=== PATIENT | male | born 1990 | race Caucasian/White ===

== ENCOUNTER 2020-06-06 16:20 | Inpatient (IN) | payer OTHER ==
--- OUTSIDE RECORDS SUMMARY | 2020-06-06 16:24 | XMS ---
:1990 Author Organization [facility] Support Name Relationship Address Phone UE Unavailable Unavailable Unavailable JARED CABEZAS MOTHER [address] [place] [address] Re-disclosure Warning The records that you are about to access may contain information from federally- assisted alcohol or drug abuse programs. If such information is present, then the following federally mandated warning applies: This information has been disclosed to you from records protected by federal confidentiality rules (42 CFR part 2). The federal rules prohibit you from making any further disclosure of this information unless further disclosure is expressly permitted by the written consent of the person to whom it pertains or as otherwise permitted by 42 CFR part 2. A general authorization for the release of medical or other information is NOT sufficient for this purpose. The Federal rules restrict any use of the information to criminally investigate or prosecute any alcohol or drug abuse patient.The records that you are about to access may contain highly sensitive health information, the redisclosure of which is protected by Article 27-F of the [facility] Public Health law. If you continue you may haveaccess to information: Regarding HIV / AIDS; Provided by facilities licensed or operated by the [facility] Office of Mental Health; or Provided by the [facility] Office for People With Developmental Disabilities. If such information is present, then the following [facility] mandated warning applies: This information has been disclosed to you from confidential records which are protected by state law. State law prohibits you from making any further disclosure of this information without the specific written consent of the person to whom it pertains, or as otherwise permitted by law. Any unauthorized further disclosure in violation of state law may result in a fine or fci sentence or both. A general authorization for the release of medical or other information is NOT sufficient authorization for further disclosure. Insurance Providers Payer name Policy type Policy ID Covered Covered green party's Policy P suleiman / Coverage green party ID relationship to Benítez Inf ormation type benítez BEACON [id number] ABDI
[2020-06-06 18:01] VITALS: BMI 27.4
--- NOTE | 2020-06-06 20:12 | BHS.RME ---
Substance Use & Tx History - Substance Use History Alcohol Substance amount: 1.5 liters of vodka Frequency of use: Daily Substance route: Oral - Last Treatment Where was last treatment: Detox ([facility] months ago.) Physical/Psych/Mental Status - Behavior General Behavior: Increased activity (restlessness, agitation) - Cooperativeness Cooperativeness: Cooperative - Thinking Thought Processes: Tight, Logical Thought content: Future oriented - Physical Health Problems Is patient presently having any pain?: Yes (heartburn) Does patient presently have any injuries (include location): No Does patient currently have a fever: No Is patient : No CIWA Nausea/Vomitin-No Nausea/No Vomiting Muscle Tremors: 4-Moderate,w/Arms Extend Anxiety: 3 Agitation: 2 Paroxysmal Sweats: 2 Orientation: 0-Oriented Tacttile Disturbances: 0-None Auditory Disturbances: 2-Mild Harshness/Frighten Visual Disturbances: 2-Mild Sensitivity Headache: 3-Moderate CIWA-Ar Total Score: 18 Treatment Recommendation - Level of Care Level of Care: Acute Medical (admit to detox for alcohol dependence.)
[2020-06-06] MEDS ORDERED: ONDANSETRON *ODT* 4 MG TABLET SL PRN (20:15)
[2020-06-06] MEDS ORDERED: ACETAMINOPHEN 325 MG TABLET (FP) PO PRN ×2 (20:15)
[2020-06-06] MEDS ORDERED: MAGNESIUM CITRATE 300 ML BOTTLE PO PRN (20:15)
[2020-06-06] MEDS ORDERED: METHOCARBAMOL 500 MG TABLET PO PRN (20:15)
[2020-06-06] MEDS ORDERED: IBUPROFEN 400 MG TABLET (FP) PO PRN (20:15)
[2020-06-06] MEDS ORDERED: MAG HYDROX/AL HYDROX/SIMETH 30 ML UNIT-DOSE CUP PO PRN (20:15)
[2020-06-06] MEDS ORDERED: hydrOXYzine PAMOATE 25 MG CAPSULE (FP) PO PRN (20:15)
[2020-06-06] MEDS ORDERED: MAGNESIUM HYDROX 2400MG/30ML ORAL SUSPENSION 30 ML CUP PO PRN (20:15)
[2020-06-06] MEDS ORDERED: BISMUTH SUBSALICYLATE 524 MG/30 ML UD PO PRN (20:15)
[2020-06-06] MEDS ORDERED: MENTHOL/PHENOL 1 EACH UD MM PRN (20:15)
[2020-06-06] MEDS ORDERED: chlordiazePOXIDE HCL 25 MG CAPSULE PO PRN (20:15)
--- NOTE | 2020-06-06 20:26 | HP ---
CIWA Score Nausea/Vomitin-No Nausea/No Vomiting Muscle Tremors: 4-Moderate,w/Arms Extend Anxiety: 3 Agitation: 2 Paroxysmal Sweats: No Perspiration Orientation: 1-Uncertain about Date Tacttile Disturbances: 0-None Auditory Disturbances: 2-Mild Harshness/Frighten Visual Disturbances: 2-Mild Sensitivity Headache: 3-Moderate CIWA-Ar Total Score: 17 - Admission Criteria OASAS Guidelines: Admission for Medically Managed Detox: Requires at least one of the followin. CIWA greater than 12 2. Seizures within the past 24 hours 3. Delirium tremens within the past 24 hours 4. Hallucinations within the past 24 hours 5. Acute intervention needed for co occurring medical disorder 6. Acute intervention needed for co occurring psychiatric disorder 7. Severe withdrawal that cannot be handled at a lower level of care (continued vomiting, continued diarrhea, abnormal vital signs) requiring intravenous medication and/or fluids 8. Patient presents the following: CIWA greater than 12 Admission Criteria Met: Admission criteria met Admitting History and Physical - Admission Chief Complaint: I need to stop drinking History of Present Illness: Patient is a 29 y/o male, first time in [facility] seeking detox form alcohol.Started drinking alcohol 2 years ago, currently drinking 1.5 liters of Vodka daily, last drank yesterday. Denies seizure but admits to blackout and eyeopener. Denies any other substance or nicotine use. History Source: Patient Limitations to Obtaining History: No Limitations - Past Surgical History Past Surgical History: Yes: None - Smoking History Smoking history: Current every day smoker - Alcohol/Substance Use Hx Alcohol Use: Yes - Social History Usual Living Arrangement: Yes: With Parent Do you think of yourself as: Straight/Heterosexual ADL: Independent History of Recent Travel: No Admission ROS [facility] Allergies/Adverse Reactions: Allergies Allergy/AdvReac Type Severity Reaction Status Date / Time No Known Drug Allergies Allergy Verified 06/06/20 20:15 History of Present Illness: Patient is a 29 y/o male, first time in [facility] seeking detox form alcohol.Started drinking alcohol 2 years ago, currently drinking 1.5 liters of Vodka daily, last drank yesterday. Denies seizure but admits to blackout and eyeopener. Denies any other substance or nicotine use. Exam Limitations: No Limitations - Ebola screening Have you traveled outside of the country in the last 21 days: No Have you had contact with anyone from an Ebola affected area: No Have you been sick,other than usual withdrawal symptoms: No Do you have a fever: No - Review of Systems Constitutional: Loss of Appetite, Night Sweats EENT: reports: No Symptoms Reported Respiratory: reports: No Symptoms reported Cardiac: reports: No Symptoms Reported GI: reports: Other (heartburn) : reports: No Symptoms Reported Musculoskeletal: reports: No Symptoms Reported Integumentary: reports: No Symptoms Reported Neuro: reports: No Symptoms reported Endocrine: reports: No Symptoms Reported Hematology: reports: No Symptoms Reported Psychiatric: reports: No Sypmtoms Reported, Judgement Intact, Mood/Affect Appropiate, Anxious Other Systems: Reviewed and Negative Patient History - Patient Medical History Hx Anemia: No Hx Asthma: No Hx Chronic Obstructive Pulmonary Disease (COPD): No Hx Cancer: No Hx Cardiac Disorders: No Hx Congestive Heart Failure: No Hx Hypertension: No Hx Hypercholesterolemia: No Hx Pacemaker: No HX Cerebrovascular Accident: No Hx Seizures: No Hx Dementia: No Hx Diabetes: No Hx Gastrointestinal Disorders: Yes (heartburn used to take pepcid) Hx Liver Disease: No Hx Genitourinary Disorders: No Hx Sexually Transmitted Disorders: No (denies) - Patient Surgical History Past Surgical History: No Hx Neurologic Surgery: No Hx Cataract Extraction: No Hx Cardiac Surgery: No Hx Lung Surgery: No Hx Breast Surgery: No Hx Breast Biopsy: No Hx Abdominal Surgery: No Hx Appendectomy: No Hx Cholecystectomy: No Hx Genitourinary Surgery: No Hx Section: No Hx Orthopedic Surgery: No Hx Hysterectomy: No Anesthesia Reaction: No - PPD History Previous Implant?: Yes Documented Results: Negative w/o proof Implanted On Prior [facility] Admission?: No PPD to be Administered?: Yes - Reproductive History Patient is a Female of Child Bearing Age (11 -55 yrs old): No Patient : No (male) - Smoking Cessation Smoking history: Never smoked Have you smoked in the past 12 months: No - Substance & Tx. History Hx Alcohol Use: Yes Hx Substance Use: No Substance Use Type: Alcohol Hx Substance Use Treatment: Yes (was in [facility] last week for detox) - Substances abused Alcohol Other (specify): vodka Substance route: Oral Frequency: Daily Amount used: 1.5 liters Age of first use: 27 Date of last use: 06/06/20 Admission Physical Exam [facility] - Vital Signs Vital Signs: Vital Signs - 24 hr 06/06/20 18:00 Temperature 98.1 F Pulse Rate 93 H Respiratory 18 Rate Blood Pressure 126/77 - Physical General Appearance: Yes: Nourished, Appropriately Dressed, Tremorous, Anxious (positive alcohol on breath) HEENTM: Yes: EOMI, Hearing grossly Normal, JOSE, Scleral Ictenus R Respiratory: Yes: Within Normal Limits, Lungs Clear, Normal Breath Sounds, No Respiratory Distress, No Accessory Muscle Use Neck: Yes: Within Normal Limits, No masses,lesions,Nodules Breast: Yes: Within Normal Limits, No masses Cardiology: Yes: Regular Rhythm, Regular Rate, S1, S2 Abdominal: Yes: Flat, Soft, Increased Bowel Sounds Genitourinary: Yes: Within Normal Limits Back: Yes: Within Normal Limits, Normal Inspection Musculoskeletal: Yes: Within Normal Limits, full range of Motion, Gait Steady Extremities: Yes: Within Normal Limits Neurological: Yes: Within Normal Limits, Alert, Motor Strength 5/5 Integumentary: Yes: Within Normal Limits, Normal Color, Dry Lymphatic: Yes: Within Normal Limits - Diagnostic (1) Alcohol dependence with withdrawal, uncomplicated Current Visit: Yes Status: Acute (2) Acid reflux Current Visit: Yes Status: Chronic Cleared for Admission [facility] - Detox or Rehab [facility] Level of Care: Medically Managed Detox Regimen/Protocol: Librium Claeared for Rehab Admission: No Screened but not Admitted - Documentation of Visit Screened but not Admitted: No Breathalyzer - Breathalyzer Breathalyzer: 0.179 Urine Drug Screen - Test Device Lot number: [id number] Expiration date: 12/01/21 - Control Is test valid?: Yes - Results Drug screen NEGATIVE: No Urine drug screen results: BZO-Benzodiazepines Inpatient Rehab Admission - Rehab Decision to Admit Inpatient rehab admission?: No
--- OUTSIDE RECORDS SUMMARY | 2020-06-06 21:11 | XMS ---
:1990 Author [facility] Support Name Relationship Address Phone UE Unavailable Unavailable Unavailable JARED CABEZAS MOTHER [address] [place] [address] Re-disclosure Warning The records that you are [...] is protected by Article 27-F of the [facility] Public Health law. If you continue you may haveaccess to information: Regarding HIV / AIDS; Provided by facilities licensed or operated by the [facility] Office of Mental Health; or Provided by the [facility] Office for People With Developmental Disabilities. If such information is present, then the following [facility] mandated warning applies: This information has [...] law may result in a fine or halfway sentence or both. A general authorization for the release of medical or other information is NOT sufficient authorization for further disclosure. Insurance Providers Payer name Policy type Policy ID Covered Covered green party's Policy P suleiman / Coverage green party ID relationship to Benítez Inf ormation type benítez BEACON [id number] ABDI
[2020-06-06] MEDS: THIAMINE HCL 100 MG TABLET (FP) PO SCH (21:49)
[2020-06-06] MEDS: MELATONIN 5 MG TABLETS PO SCH (21:51)
[2020-06-06] MEDS: chlordiazePOXIDE HCL 25 MG CAPSULE PO SCH (22:00)
[2020-06-07] MEDS: chlordiazePOXIDE HCL 25 MG CAPSULE PO SCH ×4 (05:34→22:06)
--- NOTE | 2020-06-07 09:49 | PN ---
S CIWA - CIWA Score Nausea/Vomitin-Mild Nausea/No Vomiting Muscle Tremors: 3 Anxiety: 3 Agitation: 4-Moderately Restless Paroxysmal Sweats: 3 Orientation: 0-Oriented Tacttile Disturbances: 0-None Auditory Disturbances: 0-None Visual Disturbances: 0-None Headache: 0-None Present CIWA-Ar Total Score: 14 BHS Progress Note (SOAP) Subjective: sweats shakes interrupted sleep agitation thirsty nausea Objective: 06/07/20 09:48 Vital Signs Temperature 98.7 F 06/07/20 06:15 Pulse Rate 75 06/07/20 06:15 Respiratory Rate 20 06/07/20 06:15 Blood Pressure 134/67 06/07/20 06:15 O2 Sat by Pulse Oximetry (%) 99 06/07/20 06:15 labs pending aaox3 ambulating no acute distress Assessment: 06/07/20 09:49 withdrawals sx Plan: continue detox increase fluids
--- NOTE | 2020-06-07 10:09 | EKG ---
Test Reason : Blood Pressure : / mmHG Vent. Rate : 077 BPM Atrial Rate : 077 BPM P-R Int : 128 ms QRS Dur : 078 ms QT Int : 408 ms P-R-T Axes : 055 055 047 degrees QTc Int : 461 ms NORMAL SINUS RHYTHM NORMAL ECG NO PREVIOUS ECGS AVAILABLE Confirmed by MD Antwon, Scott ([id number]) on 06/07/2020 10:09:38 AM Referred By: Confirmed By:Scott Kapoor MD
[2020-06-07] MEDS: FAMOTIDINE 20 MG TABLET PO SCH (10:42)
[2020-06-07] MEDS: PRENATAL VITAMINS W/ FOLIC ACID TABLET (FP) PO SCH (10:42)
[2020-06-07 12:01] LABS: HEMATOCRIT 43.4 % (35.4-49); HEMOGLOBIN 14.9 GM/dL (11.7-16.9); MCH 32.5 pg (25.7-33.7); MCHC 34.4 g/dl (32.0-35.9); MEAN CELL VOLUME 94.6 fl (80-96); MEAN PLT VOLUME 9.2 fl (7.5-11.1); PLATELET COUNT 178 K/MM3 (134-434); RBC 4.59 M/mm3 (4.00-5.60); RDW 14.4 % (11.9-15.9); WHITE BLOOD COUNT 4.4 K/mm3 (4.0-10.0)
[2020-06-07 12:07] LABS: BILIRUBIN,TOTAL 2.3 mg/dL (0.2-1); BLOOD UREA NITROGEN 11.9 mg/dL (7-18); CALCIUM 8.7 mg/dL (8.5-10.1); CREATININE 0.9 mg/dL (0.55-1.3); POTASSIUM 3.9 mmol/L (3.5-5.1); TOT PROT 7.3 g/dl (6.4-8.2)
[2020-06-07] MEDS: THIAMINE HCL 100 MG TABLET (FP) PO SCH (22:05)
[2020-06-07] MEDS: MELATONIN 5 MG TABLETS PO SCH (22:08)
[2020-06-08] MEDS: chlordiazePOXIDE HCL 25 MG CAPSULE PO SCH ×4 (05:39→22:03)
[2020-06-08] MEDS ORDERED: NICOTINE POLACRILEX 4 MG GUM BUC PRN (08:45)
[2020-06-08] MEDS: FAMOTIDINE 20 MG TABLET PO SCH (10:36)
[2020-06-08] MEDS: PRENATAL VITAMINS W/ FOLIC ACID TABLET (FP) PO SCH (10:36)
--- NOTE | 2020-06-08 14:07 | PN ---
S CIWA - CIWA Score Nausea/Vomitin-No Nausea/No Vomiting Muscle Tremors: 3 Anxiety: 2 Agitation: 2 Paroxysmal Sweats: 2 Orientation: 0-Oriented Tacttile Disturbances: 0-None Auditory Disturbances: 0-None Visual Disturbances: 0-None Headache: 0-None Present CIWA-Ar Total Score: 9 BHS Progress Note (SOAP) Subjective: sweats restless Objective: 06/08/20 14:06 Vital Signs Temperature 97.7 F 06/08/20 12:58 Pulse Rate 80 06/08/20 12:58 Respiratory Rate 18 06/08/20 12:58 Blood Pressure 123/72 06/08/20 12:58 O2 Sat by Pulse Oximetry (%) 98 06/08/20 12:58 Laboratory Tests 06/06/20 06/07/20 06/07/20 07:30 07:00 07:30 WBC 4.4 RBC 4.59 Hgb 14.9 Hct 43.4 MCV 94.6 MCH 32.5 MCHC 34.4 RDW 14.4 Plt Count 178 MPV 9.2 Sodium 138 Potassium 3.9 Chloride 102 Carbon Dioxide 25 Anion Gap 11 BUN 11.9 Creatinine 0.9 Est GFR (CKD-EPI)AfAm 135.19 Est GFR (CKD-EPI)NonAf 116.64 Random Glucose 69 L Calcium 8.7 Total Bilirubin 2.3 H AST 58 H ALT 57 Alkaline Phosphatase 67 Total Protein 7.3 Albumin 4.0 Syphilis Serology Non-reactive labs noted aaox3 ambulating no acute distress Assessment: 06/08/20 14:07 withdrawals Plan: continue detox
[2020-06-08] MEDS: MELATONIN 5 MG TABLETS PO SCH (22:03)
[2020-06-08] MEDS: THIAMINE HCL 100 MG TABLET (FP) PO SCH (22:03)
[2020-06-09] MEDS ORDERED: chlordiazePOXIDE HCL 10 MG CAPSULE PO PRN
[2020-06-09] MEDS: chlordiazePOXIDE HCL 10 MG CAPSULE PO SCH ×4 (05:22→22:06)
--- NOTE | 2020-06-09 08:53 | PN ---
S CIWA - CIWA Score Nausea/Vomitin-Mild Nausea/No Vomiting Muscle Tremors: 2 Anxiety: 2 Agitation: 2 Paroxysmal Sweats: No Perspiration Orientation: 0-Oriented Tacttile Disturbances: 0-None Auditory Disturbances: 0-None Visual Disturbances: 0-None Headache: 1-Very Mild CIWA-Ar Total Score: 8 BHS Progress Note (SOAP) Subjective: alert,irritable,anxious,interrupted sleep,aching pain,nausea Objective: 06/09/20 13:17 Vital Signs Temperature 97.8 F 06/09/20 08:42 Pulse Rate 77 06/09/20 08:42 Respiratory Rate 18 06/09/20 08:42 Blood Pressure 122/65 06/09/20 08:42 O2 Sat by Pulse Oximetry (%) 99 06/09/20 08:42 Laboratory Last Values WBC 4.4 K/mm3 (4.0-10.0) 06/07/20 07:00 RBC 4.59 M/mm3 (4.00-5.60) 06/07/20 07:00 Hgb 14.9 GM/dL (11.7-16.9) 06/07/20 07:00 Hct 43.4 % (35.4-49) 06/07/20 07:00 MCV 94.6 fl (80-96) 06/07/20 07:00 MCH 32.5 pg (25.7-33.7) 06/07/20 07:00 MCHC 34.4 g/dl (32.0-35.9) 06/07/20 07:00 RDW 14.4 % (11.9-15.9) 06/07/20 07:00 Plt Count 178 K/MM3 (134-434) 06/07/20 07:00 MPV 9.2 fl (7.5-11.1) 06/07/20 07:00 Sodium 138 mmol/L (136-145) 06/07/20 07:30 Potassium 3.9 mmol/L (3.5-5.1) 06/07/20 07:30 Chloride 102 mmol/L (98-107) 06/07/20 07:30 Carbon Dioxide 25 mmol/L (21-32) 06/07/20 07:30 Anion Gap 11 MMOL/L (8-16) 06/07/20 07:30 BUN 11.9 mg/dL (7-18) 06/07/20 07:30 Creatinine 0.9 mg/dL (0.55-1.3) 06/07/20 07:30 Est GFR (CKD-EPI)AfAm 135.19 06/07/20 07:30 Est GFR (CKD-EPI)NonAf 116.64 06/07/20 07:30 Random Glucose 69 mg/dL (74-106) L 06/07/20 07:30 Calcium 8.7 mg/dL (8.5-10.1) 06/07/20 07:30 Total Bilirubin 2.3 mg/dL (0.2-1) H 06/07/20 07:30 AST 58 U/L (15-37) H 06/07/20 07:30 ALT 57 U/L (13-61) 06/07/20 07:30 Alkaline Phosphatase 67 U/L (45-117) 06/07/20 07:30 Total Protein 7.3 g/dl (6.4-8.2) 06/07/20 07:30 Albumin 4.0 g/dl (3.4-5.0) 06/07/20 07:30 Syphilis Serology Non-reactive (NONREACTIVE) 06/06/20 07:30 Assessment: 06/09/20 13:22 withdrawal symptom but less Plan: continue detox librium regimen,discharge in am
[2020-06-09] MEDS: FAMOTIDINE 20 MG TABLET PO SCH (10:14)
[2020-06-09] MEDS: PRENATAL VITAMINS W/ FOLIC ACID TABLET (FP) PO SCH (10:14)
[2020-06-09] MEDS: MELATONIN 5 MG TABLETS PO SCH (22:07)
[2020-06-09] MEDS: THIAMINE HCL 100 MG TABLET (FP) PO SCH (22:07)
[2020-06-10] MEDS ORDERED: chlordiazePOXIDE HCL 10 MG CAPSULE PO SCH (05:00)
[2020-06-10 09:26] VITALS: BP 111/73; PULSE 64; TEMP 96.9
[2020-06-10] MEDS: FAMOTIDINE 20 MG TABLET PO SCH (10:24)
[2020-06-10] MEDS: PRENATAL VITAMINS W/ FOLIC ACID TABLET (FP) PO SCH (10:24)
--- NOTE | 2020-06-10 11:52 | PN ---
[facility] Progress Note Note: pt was in same room with pt with a positive covid result. Pt had a rapid covid test performed and today is his discharge as well. Pt was given the opportunity to wait for the rapid covid results and then go home this afternoon but pt chose to leave. pt provided telephone number to be called for result. pt was also advised that if results are positive he will require to quarantine for 14 days as required by CDC recommendation. pt in agreement.
--- NOTE | 2020-06-10 11:53 | DS ---
[facility] Detox Discharge Summary Admission Date: 06/06/20 Discharge Date: 06/10/20 - History Present History: Alcohol Dependence - Physical Exam Results Vital Signs: Vital Signs Temperature 96.9 F L 06/10/20 08:55 Pulse Rate 64 06/10/20 08:55 Respiratory Rate 18 06/10/20 08:55 Blood Pressure 111/73 06/10/20 08:55 O2 Sat by Pulse Oximetry (%) 98 06/10/20 08:55 Pertinent Admission Physical Exam Findings: Vital Signs Temperature 96.9 F L 06/10/20 08:55 Pulse Rate 64 06/10/20 08:55 Respiratory Rate 18 06/10/20 08:55 Blood Pressure 111/73 06/10/20 08:55 O2 Sat by Pulse Oximetry (%) 98 06/10/20 08:55 Laboratory Tests 06/06/20 06/07/20 06/07/20 07:30 07:00 07:30 WBC 4.4 RBC 4.59 Hgb 14.9 Hct 43.4 MCV 94.6 MCH 32.5 MCHC 34.4 RDW 14.4 Plt Count 178 MPV 9.2 Sodium 138 Potassium 3.9 Chloride 102 Carbon Dioxide 25 Anion Gap 11 BUN 11.9 Creatinine 0.9 Est GFR (CKD-EPI)AfAm 135.19 Est GFR (CKD-EPI)NonAf 116.64 Random Glucose 69 L Calcium 8.7 Total Bilirubin 2.3 H AST 58 H ALT 57 Alkaline Phosphatase 67 Total Protein 7.3 Albumin 4.0 Syphilis Serology Non-reactive labs noted covid result pending aaox3 ambulating no acute distress - Treatment Hospital Course: Detox Protocol Followed, Detoxed Safely, Responded well, Discharged Condition Good, Rehab Referral Accepted - Medication Discharge Medications: Ambulatory Orders Gabapentin [Neurontin -] 300 mg PO TID 06/06/20 - Diagnosis (1) Alcohol dependence with withdrawal, uncomplicated Status: Chronic (2) Acid reflux Status: Chronic Qualifiers: Esophagitis presence: without esophagitis Qualified Code(s): K21.9 - Gastro-esophageal reflux disease without esophagitis - AMA Did Patient Leave Against Medical Advice: No
[2020-06-11] MEDS ORDERED: chlordiazePOXIDE HCL 10 MG CAPSULE PO ONE (05:00)
== END 2020-06-10 10:24 | disposition home or self-care (01) | DRG 775 ==
LOC: YASAS 16:20 → Y6N 21:07
PROVIDERS: ADMIT Allergy & Immunology; ATTEND Allergy & Immunology
PROC: HZ2ZZZZ Detoxification Services for Substance Abuse Treatment (ICD-10-PCS; principal; 2020-06-06)
DX: F10.230 Alcohol dependence with withdrawal, uncomplicated (principal); K21.9 Gastro-esophageal reflux disease without esophagitis
CPT/HCPCS: 36415; 80053; 85027; 86780; 93005; 93010; C9803; U0003